=== PATIENT | female | born 1945 | race Caucasian/White ===

== ENCOUNTER 2024-08-14 20:12 | Emergency (ER) | payer MEDICARE, SELFPAY ==
[2024-08-14 20:13] VITALS: BP 156/74; PULSE 76; RESP 16; TEMP 36.8; O2SAT 97; BMI 28.9
--- NOTE | 2024-08-14 20:31 | CT_ITS ---
PROCEDURE: ABDOMEN/PELVIS W IV CONT ONLY REASON FOR EXAM: Pain TECHNIQUE: Abdomen and pelvis CT with intravenous contrast. COMPARISON: None. FINDINGS: Lung bases: Clear Liver: Unremarkable. Gallbladder: Absent. Spleen: Unremarkable. Pancreas: Unremarkable. Adrenals: Unremarkable. Kidneys: 7 mm distal right ureteral calculus at the ureterovesicular junction with upstream moderate hydroureteronephrosis. Heterogeneous decreased attenuation of the right kidney compared to the relatively normal left kidney, for which pyelonephritis must be excluded. Nonobstructing 3 mm left-sided renal calculus is noted. Bladder: Unremarkable. Reproductive Organs: Unremarkable. Bowel: Unremarkable. Normal appendix. Appendix: Normal. Lymph nodes: No suspicious lymph node enlargement. Vasculature: Major vascular structures are unremarkable. Peritoneum / Retroperitoneum: No ascites. No free air. Bones: Unremarkable. CT/Abdomen/Pelvis W IV Cont ONLY IMPRESSION: 7 mm distal right ureteral calculus at the ureterovesicular junction with upstr eam moderate hydroureteronephrosis. Heterogeneous decreased attenuation of the right kidney compared to the relatively normal lef t kidney, for which pyelonephritis must be excluded. Nonobstructing 3 mm left-sided renal calculus is noted. One or more dose reduction techniques were used (e.g., Automated exposure contr ol, adjustment of the mA and/or kV according to patient size, use of iterative reconstruction technique). Reading Location: [facility]
--- NOTE | 2024-08-14 20:34 | EX.ED.DYSGE1 ---
HPI <CRYSTAL Reyna - Last Filed: 08/14/24 22:00> History of Present Illness Chief Complaint: Abd Pain Narrative Narrative: Patient is an 79-year-old female with history of hypertension hyperlipidemia upper thyroidism history of confusion, memory loss over the last year presenting to the emergency department complaints of generalized abdominal pain, nausea and vomiting, left-sided flank pain. Per the daughter who is with the patient, it is difficult because she has multiple vague symptoms. However the patient was more weak today and the daughter wants her here for evaluation. PFSH <CRYSTAL Ryena - Last Filed: 08/14/24 22:00> [facility] Medical History (Updated 08/15/24 @ 00:[address] Larry Mijares, DO) Carpal tunnel syndrome on right Home Medications ?Medication ?Instructions ?Recorded ?Last Taken ?Type amlodipine 10 mg-atorvastatin 40 1 tab PO DAILY 08/14/24 Unknown History mg tablet aspirin 81 mg chewable tablet 1 tab PO DAILY 08/14/24 Unknown History levothyroxine 50 mcg capsule 50 mcg PO DAILY 08/14/24 Unknown History lisinopril 5 mg tablet 5 mg PO DAILY 08/14/24 Unknown History metoprolol tartrate 25 mg tablet 25 mg PO BID 08/14/24 Unknown History nitroglycerin 0.4 mg sublingual 0.4 mg sublingual Q5M 08/14/24 Unknown History tablet ciprofloxacin HCl 500 mg tablet 500 mg PO BID #14 TABLETS 08/15/24 Unknown Rx hydrocodone-acetaminophen 5-325mg 1 tab PO Q6H PRN PRN Pain 3 days 08/15/24 Unknown Rx 5mg-325mg #10 TABLETS Allergy/AdvReac Type Severity Reaction Status Date / Time No Known Allergies Allergy Verified 08/14/24 20:15 Surgical History (Updated 08/14/24 @ 20:43 by Stefania Marcus) History of carpal tunnel surgery Hx of cholecystectomy Social History Smoking Status: Never smoker ROS <CRYSTAL Reyna - Last Filed: 08/14/24 22:00> ROS ED ROS Narrative Constitutional: Negative for fever, weight loss. Positive for chills, weakness Eyes: Negative for vision loss, vision change, double vision ENT: Negative for any sore throat, ear pain, congestion Cardiovascular: Negative for any chest pain, tightness, palpitations Respiratory: Negative for any cough, sputum production, hemoptysis, dyspnea, dyspnea on exertion, orthopnea Gastrointestinal: Negative for any diarrhea, constipation, blood in stool, blood in vomit. Positive for abdominal pain, nausea and vomiting : Negative for any urinary frequency, dysuria, retention, blood in urine Muscle skeletal: Negative for any neck pain, back pain. Positive for left-sided flank pain Neurological: Negative for any headache, syncope, dizziness Skin: Negative for any rashes, itching, abrasions, lacerations Psychiatric: Negative for any depression, anxiety, stress, suicidal ideation, homicidal ideation Hematologic: Negative for any excessive bruising, easy bleeding EXAM <CRYSTAL Reyna - Last Filed: 08/14/24 22:00> Physical Exam Narrative Exam Narrative: Vital signs reviewed. HEET: Head normocephalic atraumatic, TMs clear bilaterally. Posterior pharynx is clear, dry mucous membranes. Nares clear bilaterally. Patient looks slightly flushed. Neck: Supple with no lymphadenopathy or tenderness. No signs of meningismus. Cardiac: Regular rate and rhythm no murmurs gallops or rubs, equal peripheral pulses bilaterally. Respiratory: Lungs clear to auscultation bilaterally. No chest tenderness. Abdomen: Soft, nontender, nondistended. No abdominal bruit or pulsatile masses. No hepatosplenomegaly. No peritoneal signs Extremities: No peripheral edema, no signs of gross trauma or deformity. Active full range of motion of all extremities. Neuro: Cranial nerves II through XII intact, no focal neurological deficits. Skin: Clean dry and intact with no rash, purpura, petechiae, vesicles or pustules. Backs/flank: No CVA tenderness, no midline spinal tenderness, no deformity. Patient only had some pain to the left flank. No significant CVA tenderness. Psych: Normal mood and affect. No SI, HI or acute psychosis. Const Vital Signs: 08/14/24 20:13 08/14/24 22:13 08/15/24 00:00 Temperature 98.2 F Temperature Source Oral Pulse Rate 76 75 90 Respiratory Rate 16 18 16 Blood Pressure 156/74 H 159/71 H Blood Pressure Mean 101 100 Pulse Ox 97 98 96 Oxygen Delivery Method Room Air Room Air Room Air <Dr. Larry Mijares DO - Last Filed: 08/15/24 00:44> Physical Exam Const Vital Signs: 08/14/24 20:13 08/14/24 22:13 08/15/24 00:00 Temperature 98.2 F Temperature Source Oral Pulse Rate 76 75 90 Respiratory Rate 16 18 16 Blood Pressure 156/74 H 159/71 H Blood Pressure Mean 101 100 Pulse Ox 97 98 96 Oxygen Delivery Method Room Air Room Air Room Air [facility] <Desmond LoweCRYSTAL - Last Filed: 08/14/24 22:00> [facility] Lab Data Labs: Laboratory Results - last 24 hr 08/14/24 20:42 WBC 6.7 RBC 4.37 Hgb 13.4 Hct 37.9 MCV 86.7 MCH 30.7 MCHC 35.4 RDW Std Deviation 39.8 RDW Coeff of [place]ha 12.5 Plt Count 227 MPV 9.9 Immature Gran % (Auto) 0.300 Neut % (Auto) 62.6 Lymph % (Auto) 26.7 [place] % (Auto) 6.8 Eos % (Auto) 3.0 Baso % (Auto) 0.6 Absolute Neuts (auto) 4.2 Absolute Lymphs (auto) 1.78 Nucleated RBC % 0 Sodium 138 Potassium 3.5 Chloride 104 Carbon Dioxide 26.0 Anion Gap 8 BUN 16 Creatinine 1.05 H Estim Creat Clear Calc 42.76 Est GFR (MDRD) Af Amer 65 Est GFR (MDRD) Non-Af 54 L BUN/Creatinine Ratio 15.2 Glucose 118 H Calcium 9.1 Total Bilirubin 0.40 AST 10 L ALT 20 Alkaline Phosphatase 114 Total Protein 7.4 Albumin 3.5 Globulin 3.9 Albumin/Globulin Ratio 0.9 Lipase 38 Urine Color Yellow Urine Clarity Sl. Cloudy Urine pH 6.0 Ur Specific [place] 1.015 Urine Protein 15 H Urine Glucose (UA) Normal Urine Ketones Negative Urine Occult Blood 150 H Urine Nitrite Negative Urine Bilirubin Negative Urine Urobilinogen Normal Ur Leukocyte Esterase 500 H Urine RBC 0-5 SEEN Urine WBC 10-25 SEEN Ur Squamous Epith Cells 0-5 SEEN Calcium Oxalate Crystal RARE Urine Bacteria RARE Urine Mucus 0 SEEN Radiography Diagnostic Testing: Clinical Impression(s) from Imaging Studies Abdomen/Pelvis CT 08/14/24 20:31 IMPRESSION: 7 mm distal right ureteral calculus at the ureterovesicular junction with upstream moderate hydroureteronephrosis. Heterogeneous decreased attenuation of the right kidney compared to the relatively normal left kidney, for which pyelonephritis must be excluded. Nonobstructing 3 mm left-sided renal calculus is noted. One or more dose reduction techniques were used (e.g., Automated exposure control, adjustment of the mA and/or kV according to patient size, use of iterative reconstruction technique). Reading Location: [facility] Treatment and Re-Evaluation :: Differential diagnosis includes however is not limited to: Acute diverticulitis, bowel obstruction, COVID-19, influenza, RSV, electrolyte abnormality, kidney stone, UTI, pyelonephritis viral gastroenteritis Patient appears generally well, vital signs are stable, patient is nontoxic-appearing. Presenting to the emergency department for complaints of left lower abdominal pain, left flank pain, nausea and vomiting for the last 2 to 3 days. It is difficult secondary the patient's memory issues however I did speak with the patient's as well as the patient's daughter. Patient received a full abdominal workup including a CT scan of the abdomen pelvis, IV fluids, Zofran, CBC CMP lipase. Urinalysis will also be obtained. COVID-19 influenza RSV swab will be obtained. All radiologic examinations were read, reviewed by the emergency department attending. From these reads, a plan of care will be put in place. Patient CBC was unremarkable, chemistry showed creatinine of 1.05 only slightly elevated. Glucose 118, lipase was negative. Urinalysis showed rare bacteria however there was 10-25 white blood cells, 500 leukocyte esterase, this was sent for culture. IV Rocephin given. Currently waiting on the influenza RSV and COVID as well as a CT scan of the abdomen pelvis. Patient remained stable. <Dr. Larry Mijares, DO - Last Filed: 08/15/24 00:44> [facility] Narrative Medical decision making narrative: I have personally performed a face to face assessment of the patient and have reviewed the SHELL Note. I performed a substantive portion of the visit including all aspects of the following. My see findings include: History: Patient presents with abdominal pain, nausea, and vomiting that has been getting worse over the past few days. Patient denies any hematemesis or coffee-ground emesis. Patient denies any diarrhea, melena, or hematochezia. Patient denies any dysuria or hematuria. Patient states her pain is mainly over the left flank area. Patient admits to some subjective chills. Exam: Vital signs are stable. Patient is afebrile. Patient is in no acute distress. Oral mucosa is pink and moist. Neck is supple. Trachea is midline. There is no JVD. Heart was regular rate and rhythm. Lungs are clear and equal bilaterally. Abdomen is soft. Bowel sounds are normal. There is no tenderness. There is some left CVA tenderness. There is no rebound or guarding noted. Cranial nerves II through XII are intact. There are no focal motor or sensory deficits noted. Medical Decision Making: Differential diagnosis includes ureteral calculus, pyelonephritis, diverticulitis, electrolyte abnormality, viral illness, pancreatitis, and musculoskeletal pain. CT scan of the abdomen and pelvis will be obtained to assess for ureteral calculus and diverticulitis. CBC will be obtained to assess for leukocytosis and anemia. Comprehensive metabolic profile will be obtained to assess for hepatic function, renal function, and electrolyte abnormality. Urinalysis will be obtained to assess for urinary tract infection and hematuria. Lipase will be obtained to assess for pancreatitis. COVID-19, influenza, and RSV PCR will be obtained to assess for viral illness. Patient was given IV fluids and Zofran. CBC was reviewed and was within normal limits. Comprehensive metabolic profile was reviewed and was within normal limits. Lipase was reviewed and was normal at 38. Urinalysis was reviewed. Leukocyte esterase was 500. There are 10-25 white blood cells noted. CT scan of the abdomen pelvis was obtained. There is a 7 mm distal right ureteral calculus with hydronephrosis and hydroureter. There is a nonobstructing 3 mm calculus in the left kidney. There is decreased attenuation of the right kidney compared to the left. This was interpreted by the radiologist was also independently reviewed by myself. Patient was given a dose of Rocephin here. COVID-19 PCR was reviewed and was negative. Influenza PCR was reviewed and was negative for influenza A and influenza B. RSV PCR was reviewed and was negative. Case was discussed with Dr. Murillo. He states that the patient can go home and follow-up as an outpatient. Patient was given a prescription for Cipro. Patient was given a prescription for Mousie. Patient was instructed to follow-up with Dr. Murillo in 3 days. Patient and family understood and were agreeable with the plan. All questions were answered. Lab Data Labs: Laboratory Results - last 24 hr 08/14/24 20:42 WBC 6.7 RBC 4.37 Hgb 13.4 Hct 37.9 MCV 86.7 MCH 30.7 MCHC 35.4 RDW Std Deviation 39.8 RDW Coeff of [place]ha 12.5 Plt Count 227 MPV 9.9 Immature Gran % (Auto) 0.300 Neut % (Auto) 62.6 Lymph % (Auto) 26.7 [place] % (Auto) 6.8 Eos % (Auto) 3.0 Baso % (Auto) 0.6 Absolute Neuts (auto) 4.2 Absolute Lymphs (auto) 1.78 Nucleated RBC % 0 Sodium 138 Potassium 3.5 Chloride 104 Carbon Dioxide 26.0 Anion Gap 8 BUN 16 Creatinine 1.05 H Estim Creat Clear Calc 42.76 Est GFR (MDRD) Af Amer 65 Est GFR (MDRD) Non-Af 54 L BUN/Creatinine Ratio 15.2 Glucose 118 H Calcium 9.1 Total Bilirubin 0.40 AST 10 L ALT 20 Alkaline Phosphatase 114 Total Protein 7.4 Albumin 3.5 Globulin 3.9 Albumin/Globulin Ratio 0.9 Lipase 38 Urine Color Yellow Urine Clarity Sl. Cloudy Urine pH 6.0 Ur Specific [place] 1.015 Urine Protein 15 H Urine Glucose (UA) Normal Urine Ketones Negative Urine Occult Blood 150 H Urine Nitrite Negative Urine Bilirubin Negative Urine Urobilinogen Normal Ur Leukocyte Esterase 500 H Urine RBC 0-5 SEEN Urine WBC 10-25 SEEN Ur Squamous Epith Cells 0-5 SEEN Calcium Oxalate Crystal RARE Urine Bacteria RARE Urine Mucus 0 SEEN Radiography Diagnostic Testing: Clinical Impression(s) from Imaging Studies Abdomen/Pelvis CT 08/14/24 20:31 IMPRESSION: 7 mm distal right ureteral calculus at the ureterovesicular junction with upstream moderate hydroureteronephrosis. Heterogeneous decreased attenuation of the right kidney compared to the relatively normal left kidney, for which pyelonephritis must be excluded. Nonobstructing 3 mm left-sided renal calculus is noted. One or more dose reduction techniques were used (e.g., Automated exposure control, adjustment of the mA and/or kV according to patient size, use of iterative reconstruction technique). Reading Location: [facility] CT scan of the abdomen and pelvis was obtained. There is a 7 mm distal right ureteral calculus at the UVJ with hydroureter and hydronephrosis. There is decreased attenuation of the right kidney compared to the left kidney. There is a nonobstructing 3 mm left renal calculus. This was interpreted by the radiologist was also independently reviewed by myself. Management Discussion w/another healthcare provider: [facility] Out [employer]itcher Discharge Plan Triage Chief Complaint: Abd Pain ED Midlevel Provider: Desmond Lowe ED Provider: Larry Mijares Dx/Rx/DC Orders Clinical Impression: Calculus of distal right ureter, Urinary tract infection Instructions: ED Cystitis Female Adult, ED Kidney Stone with Pain Prescriptions: New hydrocodone-acetaminophen 5-325 mg tablet 1 tab PO Q6H PRN PRN (Reason: Pain) 3 Days Qty: 10 0RF ciprofloxacin HCl 500 mg tablet 500 mg PO BID Qty: 14 0RF No Action aspirin 81 mg tablet,chewable 1 tab PO DAILY amlodipine-atorvastatin 10-40 mg tablet 1 tab PO DAILY levothyroxine 50 mcg capsule 50 mcg PO DAILY lisinopril 5 mg tablet 5 mg PO DAILY metoprolol tartrate 25 mg tablet 25 mg PO BID nitroglycerin 0.4 mg tablet, sublingual 0.4 mg sublingual Q5M Rx Instructions: do not exceed 3 doses per episode Primary Care Provider: Prasanna Arce Referrals: Prasanna Arce MD [Primary Care Provider] - 5-7 Days Carmelo Murillo MD [[facility] Staff - Active Staff] - 2 Days NOT,DEFINED [Non-Staff] - Print Language: Italian Disposition Disposition: Home, Self Care
[2024-08-14] MEDS: Ondansetron 4 MG/2 ML Vial IV (20:40)
[2024-08-14] MEDS: 0.9% Normal Saline (1000mL) 1,000 ML 999 ML IV (20:40)
[2024-08-14 20:50] LABS: Mucous, Urine 0 SEEN /hpf (<or=2+)
[2024-08-14 20:52] LABS: Color, Urine Yellow (Yellow); Glucose, Dipstick Normal (Normal); Ketone-Dipstick Negative (Negative); Leukocyte Esterase-Dipstick 500 /ul (Negative); Nitrite-Dipstick Negative (Negative); Occult Blood-Urine 150 /ul (Negative); Protein-Dipstick 15 mg/dl (Negative); Specific Gravity, Urine 1.015 (1.002-1.030); Urine Bilirubin Dipstick Negative (Negative); Urine Clarity Sl. Cloudy (Clear); Urine Urobilinogen Normal (Normal)
[2024-08-14 20:56] LABS: Absolute Lymphocyte Count 1.78 X10^3/uL (0.83-4.51); Absolute Neutrophil Count 4.2 X10^3/uL (2.0-7.7); Basophil# 0.04 X10^3/uL; Basophil% 0.6 % (0-1); Hematocrit 37.9 % (37-47); Hemoglobin 13.4 g/dL (12.0-15.0); Lymphocyte # 1.78 X10^3/ul (0.83-4.51); Lymphocyte % 26.7 % (19-41); Mean Corp Hgb Conc 35.4 g/dL (32-36); Mean Corpuscular Hgb 30.7 pg (27.0-32.0); Mean Corpuscular Volume 86.7 fL (81-99); Mean Platelet Vol. 9.9 fl (6.2-12.0); Monocyte# 0.45 X10^3/uL; Monocyte% 6.8 % (0-10); NRBC Flagged by Analyzer 0 % (0-5); Neutrophil # 4.17 X10^3/uL (2.7-7.7); Neutrophil % 62.6 % (47-70); Platelet Count 227 K/mm3 (150-450); RBC Distribution Width CV 12.5 % (11.6-14.6); RBC Distribution Width SD 39.8 fl (35.1-43.9); Red Blood Count 4.37 M/mm3 (4.2-5.4); White Blood Count 6.7 K/mm3 (4.4-11.0)
[2024-08-14 20:59] LABS: White Blood Cells 10-25 SEEN /hpf (0-5)
[2024-08-14 21:00] LABS: Bacteria RARE /hpf (None Seen); Calcium Oxalate Crystals Ur RARE /hpf (<or=2+); Red Blood Cells-Urine 0-5 SEEN /hpf (0-5); Squamous Epithelial Cells - UA 0-5 SEEN /hpf (5-10)
[2024-08-14 21:16] LABS: ALB/GLOB Ratio 0.9 RATIO (0.9-2.4); AST(SGOT) 10 U/L (15-37); Alanine Aminotransfer ALT/SGPT 20 U/L (13-56); Albumin, Serum 3.5 g/dL (3.2-5.0); Alkaline Phosphatase 114 U/L (45-117); Anion Gap 8 (5-15); BUN 16 mg/dL (7-18); BUN/Creat Ratio 15.2 RATIO (10-20); Calcium,Total 9.1 mg/dL (8.5-10.1); Chloride 104 mmol/L (98-107); Creatinine, Serum 1.05 mg/dL (0.55-1.02); EST Glomerular Filtration Rate 54 mL/min (>60); Est Glom Filt Rate - Afr Amer 65 mL/min (>60); Estimated Creatinine Clearance 42.76 ml/min; Globulin 3.9 g/dL (2.2-4.2); Glucose 118 mg/dL (74-106); Lipase 38 U/L (13-75); Potassium 3.5 mmol/L (3.5-5.1); Protein, Total 7.4 g/dL (6.4-8.2); Sodium Level 138 mmol/L (136-145)
[2024-08-14] MEDS: Ceftriaxone 1 GM/50 ML BAG IV (21:42)
[2024-08-14 22:13] VITALS: PULSE 75; RESP 18; O2SAT 98
[2024-08-15] VITALS: BP 159/71; PULSE 68; RESP 16; O2SAT 96
== END 2024-08-15 00:45 | disposition home or self-care (01) ==
PROVIDERS: Nurse Practitioner; Emergency Provider Emergency Medicine; PCP Family Medicine; Visit Provider Emergency Medicine
DX: N20.2 Calculus of kidney with calculus of ureter (principal); N39.0 Urinary tract infection, site not specified; Z79.899 Other long term (current) drug therapy; Z79.82 Long term (current) use of aspirin
CPT/HCPCS: 74177; 80053; 81001; 83690; 85025; 87086; 87186; 87631; 96365; 96375; 96376; 99283; Q9967; A4216; J2405

== ENCOUNTER → 2024-09-15 | Outpatient (CLI) | payer MEDICARE, SELFPAY ==
--- NOTE | 2024-09-15 09:54 | RAD_ITS ---
EXAM: XR Abdomen, 1 View CLINICAL INDICATION: TECHNIQUE: Frontal supine view of the abdomen/pelvis. COMPARISON: No relevant prior studies available. FINDINGS: GASTROINTESTINAL TRACT: Unremarkable. No dilation. ORGANS: Punctate left nephrolithiasis. BONES/JOINTS: Unremarkable. No acute fracture. RAD/Abdomen Single View IMPRESSION: Punctate left nephrolithiasis. Reading Location: [facility]
== END | disposition home or self-care (01) ==
LOC: RAD 09:39
PROVIDERS: PCP Family Medicine; Referring Provider Nurse Practitioner; Visit Provider Nurse Practitioner
DX: N20.0 Calculus of kidney (principal)
CPT/HCPCS: 74018

== ENCOUNTER → 2024-09-16 | Outpatient (CLI) | payer MEDICARE, SELFPAY ==
--- NOTE | 2024-09-16 08:02 | CT_ITS ---
PROCEDURE: ABDOMEN/PELVIS WITHOUT CONT REASON FOR EXAM: History of lower pelvic pain. History of the ureteral calculus. TECHNIQUE: Abdomen and pelvis CT without intravenous contrast. No oral contrast. COMPARISON: Comparison is made with prior study dated August 14, 2024. FINDINGS: Coronary artery calcification. Lung bases: Clear Liver: Unremarkable. Gallbladder: Surgically absent. Spleen: Unremarkable. Pancreas: Unremarkable. Adrenals: Unremarkable. Kidneys: Nonobstructive calculi seen in the lower pole calyx of the left kidney. The largest calculus measures 5.2 mm. The previously seen calculus at the right ureterovesical junction is not seen at this time. 2 mm calcification is seen in the left mid ureter. This is unchanged. Bladder: Unremarkable. Reproductive Organs: The endometrium is thickened for the patient's age. Bowel: Colonic diverticulosis without diverticulitis.. Small hiatal hernia. Appendix: Normal. Lymph nodes: No suspicious lymph node enlargement. Vasculature: Mild diffuse atherosclerotic calcifications are noted. Peritoneum / Retroperitoneum: No ascites. No free air. Small right inguinal hernia containing fat. Bones: Degenerative changes of the spine. CT/Abdomen/Pelvis without Cont IMPRESSION: The previously seen calculus in the right ureterovesical junction is not seen a t this time. Nonobstructive left intrarenal calculi. Tiny calculus in the midportion of the left ureter. One or more dose reduction techniques were used (e.g., Automated exposure contr ol, adjustment of the mA and/or kV according to patient size, use of iterative reconstruction technique). Reading Location: [facility]
== END | disposition home or self-care (01) ==
PROVIDERS: PCP Family Medicine; Referring Provider Urology; Visit Provider Urology
DX: N20.1 Calculus of ureter (principal)
CPT/HCPCS: 74176